=== PATIENT | female | born 1995 | race Caucasian/White ===

== ENCOUNTER 2018-09-14 13:34 | Inpatient (IN) | payer BC ==
[~2018-09-14] VITALS: Ht 132.1 cm; Wt 82.4 kg
[2018-09-14] MEDS ORDERED: AMPICILLIN 2 GM/NS (PMX) 100 ML ONE (16:13)
[2018-09-14] MEDS: LACTATED RINGER'S 1,000 ML IV SCH ×2 (16:27→18:19)
[2018-09-14] MEDS ORDERED: BUTORPHANOL 2 MG INJ IV PRN (16:30)
[2018-09-14] MEDS ORDERED: OXYTOCIN 30 UNITS/LR 500 ML IV PRN ×2 (16:30→23:30)
[2018-09-14] MEDS ORDERED: MISOPROSTOL 200 MCG TAB PR PRN ×2 (16:30→23:30)
[2018-09-14] MEDS ORDERED: AMPICILLIN 2 GM/NS (PMX) 100 ML IV ONE (16:30)
[2018-09-14] MEDS ORDERED: LIDOCAINE 1% (MPF) 30 ML INJ INJ PRN (16:30)
[2018-09-14] MEDS ORDERED: OXYTOCIN 30 UNITS/LR 500 ML IV SCH ×2 (16:30)
[2018-09-14] MEDS ORDERED: BUTORPHANOL 1 MG INJ IV PRN (16:30)
[2018-09-14] MEDS ORDERED: CARBOPROST 250 MCG INJ IM PRN ×2 (16:30→23:30)
[2018-09-14] MEDS ORDERED: IBUPROFEN 600 MG TAB PO PRN (16:30)
[2018-09-14] MEDS ORDERED: METHYLERGONOVINE 0.2 MG INJ IM PRN ×2 (16:30→23:30)
[2018-09-14 17:16] VITALS: BP 99/56; PULSE 86; RESP 20
--- NOTE | 2018-09-14 17:50 | PREAC ---
Date/Time of Note Date/Time of Note DATE: 09/14/18 TIME: 17:49 Anesthesia Eval and Record Evaluation Time Pre-Procedure Interview DATE: 09/14/18 TIME: 17:49 Age 23 Sex female NPO: 8 hrs Preoperative diagnosis IUP Planned procedure L&D Epidural Past Medical History Past Medical History: None Surgery & Anesthesia Issues No known issue Meds Anticoagulation: No Beta Kanu within 24 hr: No Reason Beta Kanu not given: Pt. not on B-Kanu No Active Prescriptions or Reported Meds Current Medications Lactated Ringer's 1,000 ml @ 125 mls/hr Q8H IV Last administered on 09/14/18at 16:27; Admin Dose 125 MLS/HR; Start 09/14/18 at 16:10 Ampicillin 50 ml @ 100 mls/hr Q4H IV ; Start 09/14/18 at 20:30 Butorphanol Tartrate (Stadol) 1 mg Q2H PRN IV .PAIN; Start 09/14/18 at 16:30 Butorphanol Tartrate (Stadol) 2 mg Q2H PRN IV .PAIN Last administered on 08/18 03/07at 16:26; Admin Dose 2 MG; Start 09/14/18 at 16:30 Lidocaine (Xylocaine 1% (Mpf)) 30 ml ONCE PRN INJ .EPISIOTOMY; Start 09/14/18 at 16:30 Oxytocin/Lactated Ringer's 500 ml @ 500 mls/hr ONCE POST IV ; Start 09/14/18 at 16:30 Oxytocin/Lactated Ringer's 500 ml @ 125 mls/hr POST IV ; Start 09/14/18 at 16:30 Ibuprofen (Motrin) 600 mg ONCE PRN PO .PAIN 1-5; Start 09/14/18 at 16:30 Oxytocin/Lactated Ringer's 500 ml @ 0 mls/hr ONCE PRN IV .VAGINAL BLEEDING; Start 09/14/18 at 16:30 Methylergonovine Maleate (Methergine) 0.2 mg ONCE PRN IM .VAGINAL BLEEDING; Start 09/14/18 at 16:30 Carboprost Tromethamine (Hemabate) 250 mcg ONCE PRN IM .VAGINAL BLEEDING; Start 09/14/18 at 16:30 Misoprostol (Cytotec) 1,000 mcg ONCE PRN CO .VAGINAL BLEEDING; Start 09/14/18 at 16:30 Meds reviewed: Yes Allergies Coded Allergies: No Known Allergy (Unverified , 04/17/14) Allergies Reviewed: Yes Labs/Studies Labs Reviewed: Reviewed by anesthesiologist Result Diagram: 09/14/18 1610 Laboratory Tests 09/14/18 16:10 test: Positive Studies: ECG Pre-procedure Exam Last vitals Vital Signs Date Temp Pulse Resp B/P (MAP) Pulse Ox O2 O2 Flow FiO2 Time Delivery Rate 09/14/18 98.0 86 20 99/56 (70) Room Air 17:16 Airway: Adequate mouth opening Mallampati: Mallampati II Teeth: Normal Lung: Normal Heart: Normal ASA Physical Status ASA physical status: 2 Emergency: None Planned Anesthetic Neuraxial: Epidural Planned Pain Management Epidural, Parenteral pain med Pre-operative Attestations Prior to commencing anesthesia and surgery, the patient was re-evaluated, there was verification of: *The patient's identity *The results of appropriate recent lab work and preoperative vital signs *The above evaluation not changing prior to induction *Anesthetic plan, risk benefits, alternative and complications discussed with patient/family; questions answered; patient/family understands, accepts and wishes to proceed. JERMAINE VELAZQUEZ MD Sep 14, 2018 17:50
[2018-09-14] MEDS ORDERED: ROPIVACAINE 0.2% 100 ML ONE (17:54)
--- NOTE | 2018-09-14 17:58 | HP ---
Date/Time of Note Date/Time of Note DATE: 09/14/18 TIME: 17:54 OB - History Hx of Present Free Text/Dictation 23-year-old female 5 para 3 at 39 weeks and 1 day gestation complaining of onset of a uterine contractions started 9:30 AM She denies rupture of membrane no vaginal bleeding Claiming uterine contractions were coming every 6 minutes Chief Complaint: Labor contractions Last Menstrual Period: Jan 07, 2018 Estimated Due Date: Sep 20, 2018 : 5 Para: 3 Spontaneous : 1 Care: Good Care Ultrasounds: Normal mid trimester US Medical Complications: None Past Family/Social History * Past Medical, Surgical, Family and Obstetric Histories reviewed from chart. Blood Type: O+ Rubella: immune RPR/VDRL: Negative GBS Status: Positive HBsAG: Negative OB Admission Exam Vital Signs Vital Signs Vital Signs Date Temp Pulse Resp B/P (MAP) Pulse Ox O2 O2 Flow FiO2 Time Delivery Rate 09/14/18 98.0 86 20 99/56 (70) Room Air 17:16 Physical Exam HEENT: WNL Heart: Rhythm Normal Lungs: Clear, Equal Abdomen: WNL Extremities: Normal Reflexes: Normal Cervical Dilatation: 3cm Effacement: 50% Station: -3 Membranes: Intact Heart Rate: 140's Accelerations: Accelerations Present Decelerations: No Decelerations Varibility: Marked Contractions on Admission: < 5 Minutes Apart Date/Time Contractions Began: 9:30 AM 329 Frequency of Contractions: Every 3-4 minutes Duration: At Intensity: Firm Last 72 hours Lab Results CBC & BMP 09/14/18 16:10 OB Assessment/Plan Other Assessment: Term gestation in labor pains Other plan: Proceed with a spontaneous labor vaginal delivery anticipated PATRICIA MUSA MD Sep 14, 2018 17:58
[2018-09-14] MEDS ORDERED: FENTAnyl 2MCG/ML-ROPIV 0.2% 100 ML BAG EPI SCH (18:00)
[2018-09-14] MEDS ORDERED: DIPHENHYDRAMINE 50 MG INJ IV PRN (18:00)
[2018-09-14] MEDS ORDERED: NALOXONE (0.4 MG/ML) INJ IV PRN (18:00)
[2018-09-14] MEDS ORDERED: ONDANSETRON 4 MG INJ IV PRN (18:00)
[2018-09-14] MEDS ORDERED: EPHEDrine SULFATE 50 MG/5 ML SYG IV PRN (19:00)
[2018-09-14] MEDS ORDERED: KETOROLAC 30 MG INJ IV STA (19:43)
--- NOTE | 2018-09-14 19:51 | LDN ---
Date/Time of Note Date/Time of Note DATE: 09/14/18 TIME: 19:49 Delivery Summary Normal spontaneous vaginal delivery of a viable over intact perineum Weeks of Gestation 39-week Placenta Delivered: Spontaneously, Intact & Complete Meconium: none Episiotomy: No Perineal laceration: 0 Delivery Information Sex Infant Sex: male Apgars 1 Minute: 8 5 Minute: 9 Suctioning Nose & mouth suctioned at anitra: Yes Delee suction performed: No Umbilical Cord Umbilical cord with: 3 Vessels Cord presentations: no nuchal cord Cord Blood was obtained: Yes Mother & Baby Disposition Disposition Mom & Baby to Maternity; Good: Yes (Mother and baby were recovered in good condition) Mom transferred to: Other (Maternity) Baby to NICU: No PATRICIA MUSA MD Sep 14, 2018 19:51
[2018-09-14] MEDS ORDERED: MINERAL OIL LIGHT 10 ML VIAL TOP ONE (20:30)
[2018-09-14] MEDS ORDERED: AMPICILLIN 1 GM/NS (PMX) 50 ML IV SCH (20:30)
[2018-09-14 21:45] VITALS: BP 115/72; PULSE 55; RESP 17
[2018-09-14] MEDS ORDERED: HYDROCODONE/APAP (5/325) TAB PO PRN ×2 (23:30)
[2018-09-14] MEDS ORDERED: WITCH HAZEL/GLYCERIN PAD PR PRN (23:30)
[2018-09-14] MEDS ORDERED: ZOLPIDEM 5 MG TAB PO PRN (23:30)
[2018-09-14] MEDS ORDERED: DIBUCAINE 1% 30 GM OINT TOP PRN (23:30)
[2018-09-14] MEDS ORDERED: LANOLIN HPA 1 PKT TOP PRN (23:30)
[2018-09-14] MEDS ORDERED: BENZOCAINE 20% 56 ML SPRAY TOP PRN (23:30)
[2018-09-15] VITALS (15 sets, daily range): BP systolic 84–114; BP diastolic 45–77; PULSE 63–87; RESP 11–33
[2018-09-15] MEDS: IBUPROFEN 600 MG TAB PO SCH ×4 (00:15→17:42)
[2018-09-15] MEDS: LACTATED RINGER'S 1,000 ML IV* SCH ×4 (00:16→23:25)
[2018-09-15] MEDS: CEPHALEXIN 500 MG CAP PO SCH ×4 (00:17→17:41)
[2018-09-15] MEDS ORDERED: CEFAZOLIN 1 GM INJ ONE (07:00)
--- NOTE | 2018-09-15 08:11 | PAC ---
Date/Time of Note Date/Time of Note DATE: 09/15/18 TIME: 08:10 Post-Anesthesia Notes Post-Anesthesia Note Last documented vital signs Vital Signs Date Temp Pulse Resp B/P (MAP) Pulse Ox O2 O2 Flow FiO2 Time Delivery Rate 09/15/18 98.0 87 18 113/77 Room Air 04:39 (89) Activity: WNL Respiratory function: WNL Cardiovascular function: WNL Mental status: Baseline Pain reasonably controlled: Yes Hydration appropriate: Yes Nausea/Vomiting absent: Yes Comments BP:112/56,P:78, Spo2:100%, T:98,9 JERMAINE VELAZQUEZ MD Sep 15, 2018 08:10
[2018-09-15] MEDS: MAGNESIUM HYDROXIDE 30ML CUP PO SCH ×2 (09:00→20:33)
[2018-09-15] MEDS: SENNA/DOCUSATE NA (8.6MG/50MG) TAB PO SCH ×2 (09:00→20:33)
--- NOTE | 2018-09-15 15:14 | PREAC ---
Date/Time of Note Date/Time of Note DATE: 09/15/18 TIME: 15:13 Anesthesia Eval and Record Evaluation Time Pre-Procedure Interview DATE: 09/15/18 TIME: 15:13 Age 23 Sex female NPO: 8 hrs Preoperative diagnosis tubal ligation Planned procedure tubal ligation Past Medical History Past Medical History: None Surgery & Anesthesia Issues No known issue Meds Anticoagulation: No Beta Kanu within 24 hr: No Reason Beta Kanu not given: Pt. not on B-Kanu No Active Prescriptions or Reported Meds Current Medications Lactated Ringer's 1,000 ml @ 125 mls/hr Q8H IV* Last administered on 09/15/18at 07:54; Admin Dose 125 MLS/HR; Start 09/14/18 at 23:25 Ibuprofen (Motrin) 600 mg Q6 PO Last administered on 09/15/18at 00:15; Admin Dose 600 MG; Start 09/15/18 at 00:00 Acetaminophen/ Hydrocodone Bitart ([place] (5/325)) 1 tab Q4H PRN PO .PAIN 1-5; Start 09/14/18 at 23:30 Acetaminophen/ Hydrocodone Bitart ([place] (5/325)) 2 tab Q4H PRN PO .PAIN 6-10 Last administered on 09/15/18at 02:49; Admin Dose 2 TAB; Start 09/14/18 at 23:30 Zolpidem Tartrate (Ambien) 5 mg QHS PRN PO .INSOMNIA; Start 09/14/18 at 23:30 Senna/Docusate Sodium (Senokot-S) 1 tab BID PO ; Start 09/15/18 at 09:00 Magnesium Hydroxide (Milk Of Mag) 30 ml Q12 PO ; Start 09/15/18 at 09:00 Witch Philomena/ Glycerin (Tucks Pads) 1 pad BEDSIDE MEDICATION PRN [place] .HEMORRHOID/EPISIOTOMY PAIN; Start 09/14/18 at 23:30 Benzocaine (Dermoplast [place]) 1 spray BEDSIDE MEDICATION PRN TOP .HEMMORHOID/EPISIOTOMY PAIN; Start 09/14/18 at 23:30 Dibucaine (Nupercainal) 1 applic BEDSIDE MEDICATION PRN TOP .HEMMORHOID/EPISIOTOMY; Start 09/14/18 at 23:30 Lanolin (Lanolin Hpa) 1 applic BEDSIDE MEDICATION PRN TOP .NIPPLES Last administered on 09/15/18at 00:16; Admin Dose 1 APPLIC; Start 09/14/18 at 23:30 Measles/Mumps/ Rubella Vaccine Live (Mmr Ii Vaccine) 0.5 ml ONCE ONCE SC* ; Start 09/16/18 at 09:00; Stop 09/16/18 at 09:01 Diphtheria/ Tetanus/Acell Pertussis (Adacel) 0.5 ml ONCE ONCE IM* ; Start 09/16/18 at 09:00; Stop 09/16/18 at 09:01 Varicella Virus Vaccine Live (Varivax Vaccine With Diluent) 1,350 unit ONCE ONCE SC* ; Start 09/16/18 at 09:00; Stop 09/16/18 at 09:01 Oxytocin/Lactated Ringer's 500 ml @ 0 mls/hr ONCE PRN IV .VAGINAL BLEEDING; Start 09/14/18 at 23:30 Methylergonovine Maleate (Methergine) 0.2 mg ONCE PRN IM .VAGINAL BLEEDING; Start 09/14/18 at 23:30 Carboprost Tromethamine (Hemabate) 250 mcg ONCE PRN IM .VAGINAL BLEEDING; Start 09/14/18 at 23:30 Misoprostol (Cytotec) 1,000 mcg ONCE PRN ND .VAGINAL BLEEDING; Start 09/14/18 at 23:30 Cephalexin (Keflex) 500 mg Q6 PO Last administered on 09/15/18at 00:17; Admin Dose 500 MG; Start 09/15/18 at 00:00 Meds reviewed: Yes Allergies Coded Allergies: No Known Allergy (Unverified , 04/17/14) Allergies Reviewed: Yes Labs/Studies Labs Reviewed: Reviewed by anesthesiologist Result Diagram: 09/15/18 0634 Laboratory Tests 09/15/18 06:34 Blood Bank Test 09/14/18 16:10 Antibody Screen NEGATIVE Blood Type O POSITIVE Rh Immune Globulin Candidate NO test: N/A Pre-procedure Exam Last vitals Vital Signs Date Temp Pulse Resp B/P (MAP) Pulse Ox O2 O2 Flow FiO2 Time Delivery Rate 09/15/18 98.7 65 18 105/62 98 Room Air 14:38 (76) Airway: Adequate mouth opening, Adequate thyromental dist Mallampati: Mallampati I Teeth: Normal Lung: Normal Heart: Normal ASA Physical Status ASA physical status: 2 Emergency: None Pre-operative Attestations Prior to commencing anesthesia and surgery, the patient was re-evaluated, there was verification of: *The patient's identity *The results of appropriate recent lab work and preoperative vital signs *The above evaluation not changing prior to induction *Anesthetic plan, risk benefits, alternative and complications discussed with patient/family; questions answered; patient/family understands, accepts and wishes to proceed. СВЕТЛАНА DIOR DO Sep 15, 2018 15:13
[2018-09-15] MEDS ORDERED: FENTAnyl 50 MCG/ML VIAL ONE ×2 (15:19→15:25)
[2018-09-15] MEDS ORDERED: PROPOFOL 20 ML ONE (15:19)
[2018-09-15] MEDS ORDERED: ROCURONIUM 50 MG INJ ONE (15:19)
[2018-09-15] MEDS ORDERED: SUCCINYLCHOLINE CHLORIDE 100 MG/5 ML SYG IV ONE (15:19)
[2018-09-15] MEDS ORDERED: MIDAZOLAM 1 MG/ML 2 ML INJ ONE (15:20)
[2018-09-15] MEDS ORDERED: LIDOCAINE 1% (MDV) 20 ML INJ ONE (15:20)
[2018-09-15] MEDS ORDERED: morphine SULFATE/PF (10 MG/10 ML) INJ ONE (15:24)
[2018-09-15] MEDS ORDERED: ROPIVACAINE 0.5 % 30 ML VIAL ONE (15:24)
[2018-09-15] MEDS ORDERED: ONDANSETRON 4 MG INJ IV PRN (15:30)
[2018-09-15] MEDS ORDERED: KETOROLAC 30 MG INJ IV PRN (15:30)
[2018-09-15] MEDS ORDERED: HYDROmorphONE 0.5 MG/0.5 ML SYG IV PRN ×2 (15:30)
[2018-09-15] MEDS ORDERED: ZOLPIDEM 5 MG TAB PO PRN (15:30)
[2018-09-15] MEDS ORDERED: NALOXONE (0.4 MG/ML) INJ IV PRN (15:30)
[2018-09-15] MEDS ORDERED: DIPHENHYDRAMINE 50 MG INJ IV PRN (15:30)
[2018-09-15] MEDS ORDERED: BUPIVACAINE 0.5%/EPI (SDV) 30 ML INJ ONE (15:37)
--- NOTE | 2018-09-15 15:42 | PN ---
Date/Time of Note Date/Time of Note DATE: 09/15/18 TIME: 15:39 Assessment/Plan VTE Prophylaxis Risk score (from Nsg)>0 risk: 1 SCD contraindicated: low risk/ambulating Pharmacological prophylaxis: NA/contraindicated Pharm contraindication: low risk/ambulating Lines/Catheters IV Catheter Type (from Nrsg): Peripheral IV Assessment/Plan Assessment/Plan Status post vaginal delivery with serious desire for sterilization We will proceed with bilateral tubal ligation Prior to procedure complications of major procedures including but not limited to infection and hemorrhage were described and she agreed to undergo bilateral tubal ligation via minilaparotomy Result Diagram: 09/15/18 0634 Results 24hrs Laboratory Tests Test 09/14/18 16:10 09/15/18 06:11 09/15/18 06:34 White Blood Count 9.9 12.9 #H Red Blood Count 4.37 4.15 L Hemoglobin 11.4 L 10.7 L Hematocrit 34.9 L 33.4 L Mean Corpuscular Volume 79.9 L 80.5 L Mean Corpuscular Hemoglobin 26.1 L 25.8 L Mean Corpuscular 32.7 32.0 Hemoglobin Concent Red Cell Distribution Width 14.6 H 14.7 H Platelet Count 321 267 Mean Platelet Volume 10.1 10.1 Immature Granulocytes % 0.900 H 0.900 H Neutrophils % 68.3 68.5 Lymphocytes % 25.0 23.5 Monocytes % 4.7 6.3 Eosinophils % 0.7 0.5 Basophils % 0.4 0.3 Nucleated Red Blood Cells % 0.0 0.0 Immature Granulocytes # 0.090 H 0.120 H Neutrophils # 6.8 8.8 H Lymphocytes # 2.5 3.0 H Monocytes # 0.5 0.8 Eosinophils # 0.1 0.1 Basophils # 0.0 0.0 Nucleated Red Blood Cells # 0.0 0.0 Prothrombin Time 13.2 Prothrombin Time Ratio 1.0 INR International 0.99 Normalized Ratio Activated Partial Thromboplast 28.5 Time Rapid Plasma Reagin NONREACTIVE Hepatitis B Surface Antigen NEGATIVE Lab Scanned Report REFERENCE LAB Subjective 24 Hr Interval Summary Free Text/Dictation Patient has no major complaints and has desire for sterilization Alternative method of contraception including placement progesterone laden IUD and IUD and prolonged methods of contraception were discussed patient refused all and remains steadfast to have permanent sterilization procedure Constitutional: no complaints, improved Eyes: no complaints ENT: no complaints Respiratory: no complaints Cardiovascular: no complaints Gastrointestinal: no complaints Genitourinary: no complaints Musculoskeletal: no complaints Skin: no complaints Neurologic: no complaints Endocrine: no complaints Lymphatic: no complaints Psychological: no complaints, nl mood/affect Immunologic: no complaints Exam/Review of Systems Exam Vitals Vital Signs Date Temp Pulse Resp B/P (MAP) Pulse Ox O2 O2 Flow FiO2 Time Delivery Rate 09/15/18 98.7 65 18 105/62 98 Room Air 14:38 (76) Intake and Output 09/14/18 09/14/18 09/15/18 1515:00 23:00 07:00 IntakeIntake Total 2400 ml 240 ml OutputOutput Total 1368 ml 650 ml BalanceBalance 1032 ml -410 ml Exam Patient does not seem to be in any acute distress Constitutional: alert, oriented, well developed Psych: no complaints, nl mood/affect Head: normocephalic, atraumatic Eyes: nl conjunctiva, EOMI, nl lids, nl sclera, PERRL ENMT: nl external ears & nose, nl lips & teeth, nl nasal mucosa & septum Neck: supple, non-tender Respiratory: clear to auscultation, normal air movement Cardiovascular: regular rate and rhythm, nl pulses Gastrointestinal: soft, nl liver, spleen, non-tender Genitourinary - Female: uterus (This is firm) Musculoskeletal: nl extremities to inspection, nl gait and stance Extremities: normal pulses Neurological: NIGHT NURSE II-XII intact, nl mental status, nl speech, nl strength Skin: nl turgor; No rash or lesions Lymph: nl lymph nodes Results Results 24hrs Laboratory Tests Test 09/14/18 16:10 09/15/18 06:11 09/15/18 06:34 White Blood Count 9.9 12.9 #H Red Blood Count 4.37 4.15 L Hemoglobin 11.4 L 10.7 L Hematocrit 34.9 L 33.4 L Mean Corpuscular Volume 79.9 L 80.5 L Mean Corpuscular Hemoglobin 26.1 L 25.8 L Mean Corpuscular 32.7 32.0 Hemoglobin Concent Red Cell Distribution Width 14.6 H 14.7 H Platelet Count 321 267 Mean Platelet Volume 10.1 10.1 Immature Granulocytes % 0.900 H 0.900 H Neutrophils % 68.3 68.5 Lymphocytes % 25.0 23.5 Monocytes % 4.7 6.3 Eosinophils % 0.7 0.5 Basophils % 0.4 0.3 Nucleated Red Blood Cells % 0.0 0.0 Immature Granulocytes # 0.090 H 0.120 H Neutrophils # 6.8 8.8 H Lymphocytes # 2.5 3.0 H Monocytes # 0.5 0.8 Eosinophils # 0.1 0.1 Basophils # 0.0 0.0 Nucleated Red Blood Cells # 0.0 0.0 Prothrombin Time 13.2 Prothrombin Time Ratio 1.0 INR International 0.99 Normalized Ratio Activated Partial Thromboplast 28.5 Time Rapid Plasma Reagin NONREACTIVE Hepatitis B Surface Antigen NEGATIVE Lab Scanned Report REFERENCE LAB Medications Medication Current Medications Lactated Ringer's 1,000 ml @ 125 mls/hr Q8H IV* Last administered on 09/15/18at 07:54; Admin Dose 125 MLS/HR; Start 09/14/18 at 23:25 Ibuprofen (Motrin) 600 mg Q6 PO Last administered on 09/15/18at 00:15; Admin Dose 600 MG; Start 09/15/18 at 00:00 Acetaminophen/ Hydrocodone Bitart ([place] (5/325)) 1 tab Q4H PRN PO .PAIN 1-5; Start 09/14/18 at 23:30 Acetaminophen/ Hydrocodone Bitart ([place] (5/325)) 2 tab Q4H PRN PO .PAIN 6-10 Last administered on 09/15/18at 02:49; Admin Dose 2 TAB; Start 09/14/18 at 23:30 Zolpidem Tartrate (Ambien) 5 mg QHS PRN PO .INSOMNIA; Start 09/14/18 at 23:30 Senna/Docusate Sodium (Senokot-S) 1 tab BID PO ; Start 09/15/18 at 09:00 Magnesium Hydroxide (Milk Of Mag) 30 ml Q12 PO ; Start 09/15/18 at 09:00 Witch Philomena/ Glycerin (Tucks Pads) 1 pad BEDSIDE MEDICATION PRN [place] .HEMORRHOID/EPISIOTOMY PAIN; Start 09/14/18 at 23:30 Benzocaine (Dermoplast [place]) 1 spray BEDSIDE MEDICATION PRN TOP .HEMMORHOID/EPISIOTOMY PAIN; Start 09/14/18 at 23:30 Dibucaine (Nupercainal) 1 applic BEDSIDE MEDICATION PRN TOP .HEMMORHOID/EPISIOTOMY; Start 09/14/18 at 23:30 Lanolin (Lanolin Hpa) 1 applic BEDSIDE MEDICATION PRN TOP .NIPPLES Last administered on 09/15/18at 00:16; Admin Dose 1 APPLIC; Start 09/14/18 at 23:30 Measles/Mumps/ Rubella Vaccine Live (Mmr Ii Vaccine) 0.5 ml ONCE ONCE SC* ; Start 09/16/18 at 09:00; Stop 09/16/18 at 09:01 Diphtheria/ Tetanus/Acell Pertussis (Adacel) 0.5 ml ONCE ONCE IM* ; Start 09/16/18 at 09:00; Stop 09/16/18 at 09:01 Varicella Virus Vaccine Live (Varivax Vaccine With Diluent) 1,350 unit ONCE ONCE SC* ; Start 09/16/18 at 09:00; Stop 09/16/18 at 09:01 Oxytocin/Lactated Ringer's 500 ml @ 0 mls/hr ONCE PRN IV .VAGINAL BLEEDING; Start 09/14/18 at 23:30 Methylergonovine Maleate (Methergine) 0.2 mg ONCE PRN IM .VAGINAL BLEEDING; Start 09/14/18 at 23:30 Carboprost Tromethamine (Hemabate) 250 mcg ONCE PRN IM .VAGINAL BLEEDING; Start 09/14/18 at 23:30 Misoprostol (Cytotec) 1,000 mcg ONCE PRN [place] .VAGINAL BLEEDING; Start 09/14/18 at 23:30 Cephalexin (Keflex) 500 mg Q6 PO Last administered on 09/15/18at 00:17; Admin Dose 500 MG; Start 09/15/18 at 00:00 Naloxone HCl (Narcan) 0.1 mg Q2M PRN IV .RESP RATE; Start 09/15/18 at 15:30; Stop 09/16/18 at 15:29 Ketorolac Tromethamine (Toradol) 30 mg Q6H PRN IV PAIN AFTER CSECTION; Start 09/15/18 at 15:30; Stop 09/16/18 at 15:29 Hydromorphone HCl (Dilaudid) 0.2 mg Q3H PRN IV .PAIN 1-5; Start 09/15/18 at 15:30; Stop 09/16/18 at 15:29 Hydromorphone HCl (Dilaudid) 0.4 mg Q3H PRN IV .PAIN 6-10; Start 09/15/18 at 15:30; Stop 09/16/18 at 15:29 Diphenhydramine HCl (Benadryl) 25 mg Q6H PRN IV .ITCHING; Start 09/15/18 at 15:30; Stop 09/16/18 at 15:29 Ondansetron HCl (Zofran Inj) 4 mg Q6H PRN IV .NAUSEA/VOMITING; Start 09/15/18 at 15:30; Stop 09/16/18 at 15:29 Zolpidem Tartrate (Ambien) 5 mg HS MAY REPEAT X 1 PRN PO .INSOMNIA; Start 09/15/18 at 15:30; Stop 09/16/18 at 15:29 PATRICIA MUSA MD Sep 15, 2018 15:42
[2018-09-15] MEDS ORDERED: ONDANSETRON 4 MG INJ ONE (15:53)
[2018-09-15] MEDS ORDERED: FAMOTIDINE 20 MG INJ ONE (15:53)
[2018-09-15] MEDS ORDERED: METOCLOPRAMIDE 10 MG INJ ONE (15:53)
--- NOTE | 2018-09-15 16:34 | OPR ---
Operative Report Planned Procedure Procedure date Sep 15, 2018 Procedure(s) Bilateral tubal ligation Performed by see signature line Anesthesiologist: СВЕТЛАНА DIOR DO Pre-procedure diagnosis Status post vaginal delivery Desired sterilization [id number] Anesthesia Type: [id number] general Post-Procedure Post-procedure diagnosis Status post bilateral tubal ligation Findings Normal-appearing right and left fallopian tubes and ovaries Estimated Blood Loss: minimal Specimen(s) Segments of right and left fallopian tubes Grafts/Implant(s) none Complication(s) none Pt Condition post procedure: stable Disposition: PACU Procedure Description The patient was placed on the OR table in supine position. Spinal anesthesia was placed. A [place] catheter was then inserted into urinary bladder under aseptic condition. After induction of spinal anesthesia, with the patient in supine position, abdominal area was prepped and draped for usual tubal ligation procedure. Under satisfactory anesthesia, a small incision 2 to 3 cm in length was placed just below belly button, incision extended laterally to 1.5 cm lateral to the linea nigra on either side. Incision was carried down with sharp and blunt dissection until fascia was reached. Anterior recti muscle fascia was incised in the midportion. Incision extended laterally to the border of the skin incision. Peritoneum was visualized. Avoiding bowel or bladder, incision was made in peritoneum, which was extended laterally to the border of the skin incision. Two Army-Bland retractors were placed inside the incision. Incision was brought up to the level of the left fallopian tube. Fallopian tube was raised in the mid portion. A clamp was placed below the fimbriated end, most of the fallopian tube from the mesosalpinx traversing the isthmus portion of the tube. Another clamp was placed just below the first and 0 Vicryl tie was used to tie the mesosalpinx and the stump of the fallopian tube on the proximal side. Another stitch of the same kind was used for adequate hemostasis. Hemostasis appeared to be secure on ligated sites of the fallopian tube. Tube was incised above the stitched area. Same procedure was done on the fallopian tube on opposite side. Hemostasis appeared to be secure on ligated sites of either fallopian tubes. Ovaries were within normal limits. Uterus appears to be size. Announcing needle, lap, sponge and instrument count to be correct, abdomen was closed in layers as follows: Peritoneum with running stitches of #1 Vicryl, fascia edges of #1 Vicryl, subcutaneous tissue with running stitches of #1 Vicryl, and skin was reapproximated using subcuticular stitches of 4-0 Monocryl on a PS2 needle and also Dermabond was placed on the incision. The patient tolerated the procedure very well and was transferred to postanesthesia recovery room in stable and good condition. ESTIMATED BLOOD LOSS: Less than 5 mL. PATRICIA MUSA MD Sep 15, 2018 16:34
[2018-09-15] MEDS ORDERED: KETOROLAC 30 MG INJ IM STA (16:36)
--- NOTE | 2018-09-15 16:36 | DS ---
Date/Time of Note Date/Time of Note Home today or next day DATE: 09/15/18 TIME: 16:35 Obstetrical Discharge Record Final Diagnosis Final Diagnosis: Term delivered Other Final Diagnosis Status post vaginal delivery and bilateral tubal ligation Vaginal Delivery Obstetrical Delivery: Spontaneous, Bilateral Tubal Ligation Condition on Discharge Physical Assessment Last Vitals: See nurse's notes Voiding: Yes Bowel Movement: Yes Breast: Soft, non-tender, Filling Fundus: Firm Abdomen and Incision: Abdomen is soft with firm fundus Small incision is covered Episiotomy: Perineum is clean Calf Tenderness: No Patient Condition: Good PATRICIA MUSA MD Sep 15, 2018 16:36
--- NOTE | 2018-09-15 16:39 | PD.PPDC ---
PARTS REMOVER Discharge Instruction Provider Information Physician Information 23-year-old female had vaginal delivery and bilateral tubal ligation Diagnosis [id number] Final Diagnosis: Alztu8m Status post bilateral tubal ligation Condition [id number] Patient Condition: Doazj0v Good Diet [id number] Diet: Jpwny9v Resume Regular Diet Activity/Restrictions [id number] Activity: Kmult1s Normal Activity May Shower Boaic4Oc Restrictions: Utdnc5g Nothing in the Vagina Sgrgh4It Return to Work or School: Sfgcg4c November 05, 2018 Follow-up Follow-up with Physician: 2, 4, Week/Weeks (In clinic for follow-up) Return to clinic for Itcij1Dh OB Instructions: Mggfk1c Breast Tenderness Depression Blurried Vision Headache Comment: Pelvic rest for 6 weeks No lifting for 6 weeks [id number] Surgical Instructions: Kymkz3g Incisional Drainage Incisional Redness PATRICIA MUSA MD Sep 15, 2018 16:39
[2018-09-15] MEDS ORDERED: IBUP-1542 PO (16:40)
[2018-09-15] MEDS ORDERED: BUTORPHANOL 2 MG INJ IM ONE (17:00)
--- NOTE | 2018-09-15 17:02 | PAC ---
Date/Time of Note Date/Time of Note DATE: 09/15/18 TIME: 17:01 Post-Anesthesia Notes Post-Anesthesia Note Last documented vital signs Vital Signs Date Temp Pulse Resp B/P (MAP) Pulse Ox O2 O2 Flow FiO2 Time Delivery Rate 09/15/18 98 62 18 98/60 98 Room Air 1701 Activity: WNL Respiratory function: WNL Cardiovascular function: WNL Mental status: Baseline Pain reasonably controlled: Yes Hydration appropriate: Yes Nausea/Vomiting absent: Yes СВЕТЛАНА DIOR DO Sep 15, 2018 17:02
[2018-09-15] MEDS: KETOROLAC 30 MG INJ IM STA ×2 (17:26→17:27)
[2018-09-15] MEDS: LACTATED RINGER'S 1,000 ML IV SCH (18:56)
[2018-09-16] MEDS: LACTATED RINGER'S 1,000 ML IV SCH (01:08)
[2018-09-16 04:00] VITALS: BP 99/58; PULSE 71; RESP 17
[2018-09-16] MEDS: LACTATED RINGER'S 1,000 ML IV* SCH (05:36)
[2018-09-16] MEDS: IBUPROFEN 600 MG TAB PO SCH ×4 (05:36→18:08)
[2018-09-16] MEDS: CEPHALEXIN 500 MG CAP PO SCH ×4 (05:36→18:08)
[2018-09-16 08:00] VITALS: BP 112/62; PULSE 75; RESP 19
[2018-09-16] MEDS: SENNA/DOCUSATE NA (8.6MG/50MG) TAB PO SCH (08:41)
[2018-09-16] MEDS ORDERED: MEASLES,MUMPS,RUBELLA VACCINE INJ SC* ONE (09:00)
[2018-09-16] MEDS ORDERED: VARICELLA VACCINE LIVE/PF 1,350 UNIT/0.5 ML ML SC* ONE (09:00)
[2018-09-16] MEDS ORDERED: DIPHTH/TET/ACEL PERTUSS (ADULT) 0.5 ML VIAL IM* ONE (09:00)
[2018-09-16] MEDS: MAGNESIUM HYDROXIDE 30ML CUP PO SCH (09:32)
[2018-09-16 16:00] VITALS: BP 105/58; PULSE 68; RESP 19
--- NOTE | 2018-09-17 19:24 | DELSUM ---
Delivery Summary A-C Datetime Report Generated by CPN: 09/17/2018 19:24 DELIVERY PERSONNEL Material Specialist: Tersigni, Margie MATERNAL INFORMATION Delivery Anesthesia: Epidural Medications in Delivery: LR with 30 units of pitocin Delivery QBL (ml): 300 Placenta Cultured: No Maternal Complications: None LABOR SUMMARY EDC: 09/20/2018 00:00 No. Babies in Womb: 1 Attempted: No Labor Anesthesia: Epidural LABOR INFORMATION Reason for Induction: Not Applicable Onset of Labor: 09/14/2018 09:30 Complete Dilatation: 09/14/2018 19:35 Oxytocin: N/A Group B Beta Strep: Positive Antibiotics # of Doses: 1 Antibiotics Time of Last Dose: 09/14/2018 16:26 Steroids Given: None Reason Steroids Not Administered: Not Applicable MEMBRANES Membranes Rupture Method: Artificial Rupture of Membranes: 09/14/2018 18:44 Length of Rupture (hr): 0.95 Amniotic Fluid Color: Clear Amniotic Fluid Amount: Small Amniotic Fluid Odor: None STAGES OF LABOR Stage 1 hr: 10 Stage 1 min: 5 Stage 2 hr: 0 Stage 2 min: 6 Stage 3 hr: 0 Stage 3 min: 2 Total Time in Labor hr: 10 Total Time in Labor min: 13 VAGINAL DELIVERY Episiotomy: None Laceration Extension: N/A Laceration Type: None Laceration Repair: Not Applicable Initial Vag Sponge Count: 10 Final Vag Sponge Count: 10 Initial Vag Sharps Count: 1 Final Vag Sharps Count: 1 Sponge Count Correct: Yes; Vaginal Sweep Performed Sharps Count Correct: Yes BABY A INFORMATION Delivery Date/Time: 09/14/2018 19:41 Method of Delivery: Vaginal Born in Route : No : N/A Forceps: N/A Vacuum Extraction: N/A Shoulder Dystocia : N/A SHOULDER DYSTOCIA BABY A Infant Delivery Date/Time: 09/14/2018 19:41 PRESENTATION/POSITION BABY A Presentation: Cephalic Cephalic Presentation: Vertex Vertex Position: Left Occipital Anterior Breech Presentation: N/A PLACENTA INFORMATION BABY A Placenta Delivery Time : 09/14/2018 19:43 Placenta Method of Delivery: Spontaneous Placenta Status: Delivered SCORES BABY A Heart Rate 1 min: >100 bpm Resp Effort 1 min: Good Cry Reflex Irritability 1 min: Cough/Sneeze/Pulls Away Muscle Tone 1 min: Active Motion Color 1 min: Blue/Pale Resuscitation Effort 1 min: Tactile Stimulation SCORE 1 MIN: 8 Heart Rate 5 min: >100 bpm Resp Effort 5 min: Good Cry Reflex Irritability 5 min: Cough/Sneeze/Pulls Away Muscle Tone 5 min: Active Motion Color 5 min: Body [place], Extremit Blue Resuscitation Effort 5 min: Tactile Stimulation SCORE 5 MIN: 9 INFANT INFORMATION BABY A Gestational Age at Delivery: 39.1 Gestational Status: Full Term- 39- 40.6 Weeks Outcome : Liveborn Infant Condition : Stable Infant Sex: Male IDENTIFICATION/MEDS BABY A ID Band Number: [id number] Sensor Number: [id number] WEIGHT/LENGTH BABY A Birthweight (gm): 3415 Weight (lb): 7 Infant Weight (oz): 8 Infant Length (in): 19.25 Infant Length (cm): 48.90 CORD INFORMATION BABY A No. 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
== END 2018-09-16 19:20 | disposition home or self-care (01) | DRG 798 ==
LOC: OBT 13:34 → L-D 13:34 → OBT 15:48 → L-D 15:48 → PP1 21:49
PROVIDERS: ADMIT Obstetrics & Gynecology; ATTEND Obstetrics & Gynecology
PROC: 10E0XZZ Delivery of Products of Conception, External Approach (ICD-10-PCS; principal; 2018-09-14)
PROC: 0UB70ZZ Excision of Bilateral Fallopian Tubes, Open Approach (ICD-10-PCS; 2018-09-15)
DX: O99.824 Streptococcus B carrier state complicating childbirth (principal); Z37.0 Single live birth; Z3A.39 39 weeks gestation of pregnancy; Z30.2 Encounter for sterilization
CPT/HCPCS: 62319; 76815; 76818; 84112; 85025; 85610; 85730; 86592; 86850; 86900; 86901; 87340; 88302; 90716; G0463; J0290; J0595; J0690; J1885; J2250; J2274; J2405; J2590; J2765; J2795; J3010; J7120